=== PATIENT | female | born 1980 | race Caucasian/White ===

== ENCOUNTER → 2022-01-29 | Outpatient (CLI) | payer BC | LOC: MC.RAD 11:10 | DX: Z12.31 Encounter for screening mammogram for malignant neoplasm of breast (principal); N64.9 Disorder of breast, unspecified ==

== ENCOUNTER → 2022-02-04 | Outpatient (CLI) | payer BC | LOC: MC.RAD 12:50 | DX: N63.20 Unspecified lump in the left breast, unspecified quadrant (principal) ==

== ENCOUNTER → 2022-03-02 | Outpatient (CLI) | payer BC | LOC: MC.RAD 09:44 | DX: D24.2 Benign neoplasm of left breast (principal) | CPT/HCPCS: 30634; 30636 ==

== ENCOUNTER → 2024-03-02 | Outpatient (CLI) | payer BC | LOC: MC.RAD 10:30 | DX: Z12.31 Encounter for screening mammogram for malignant neoplasm of breast (principal) ==